=== PATIENT | male | born 1960 | race African-American/Black ===

== ENCOUNTER 2016-12-10 10:20 | Emergency (ER) | payer OTHER ==
[~2016-12-10 10:20] MED LIST: ALEVE220 M1
== END 2016-12-10 12:20 | disposition home or self-care (01) ==
LOC: CFTX 10:20 → CED 10:20 → CFTX 12:18
DX: H61.21 Impacted cerumen, right ear (principal); F17.210 Nicotine dependence, cigarettes, uncomplicated
CPT/HCPCS: 69209; 99283